=== PATIENT | female | born 1940 | race Caucasian/White ===

== ENCOUNTER 2018-12-26 09:17 | Inpatient (IN) | payer OTHER ==
[2018-12-26] MEDS ORDERED: INSULIN -REGULAR HUMAN 50 UNIT/0.5 ML ML ONE ×4 (10:33→14:32)
[2018-12-26] MEDS ORDERED: NA CHLORIDE 0.9% 1,000 ML ONE (10:34)
--- NOTE | 2018-12-26 11:09 | RAD REPORT ---
EXAM DESCRIPTION: RAD - Chest Single View - 12/26/2018 10:27 am CLINICAL HISTORY: tachypnea Chest pain. COMPARISON: No comparisons FINDINGS: Portable technique limits examination quality. Small pulmonary nodule is identified in the left mid lung. The lungs are otherwise clear. The heart i s mildly enlarged in size appear No displaced fractures.Follow-up CT chest may be considered for furt her assessment of the left lung nodule.
[2018-12-26 11:10] LABS: Absolute Lymphocytes (CBC) 0.6 K/uL (0.7-4.9); Absolute Monocytes 0.8 K/uL (0.1-1.3); Absolute Neutrophil 12.6 K/uL (1.8-8.0); Basophils % 0.2 % (0-1.3); Eosinophils % 0.1 % (0-4.4); Hematocrit 34.4 % (36.0-45.0); Lymphocytes % 4.3 % (15.3-44.8); MPV 7.3 fL (7.6-11.3); Monocytes % 5.9 % (3.3-12.3); RBC Red Blood Cell Count 3.75 M/uL (3.86-4.86)
[2018-12-26 11:43] LABS: Blood Morphology Comment NOT SEEN (NOT SEEN); Platelet Estimate ADEQ; Potassium 4.3 mmol/L (3.5-5.1); Sodium Level 138 mmol/L (136-145); Urine White Blood Cell Casts OK
[2018-12-26 11:55] LABS: ALT/SGPT 41 U/L (12-78); AST/SGOT 40 U/L (15-37); Albumin 3.1 g/dL (3.4-5.0); Alkaline Phosphatase 63 U/L (45-117); BUN Blood Urea Nitrogen 56 mg/dL (7-18); Bicarbonate 21 mmol/L (21-32); Bilirubin Direct 0.2 mg/dL (0-0.2); Bilirubin Total 0.6 mg/dL (0.2-1.0); Lipase 84 U/L (73-393); Protein, Total 7.2 g/dL (6.4-8.2)
[2018-12-26 11:57] LABS: Glucose Level 507 mg/dL (74-106)
[2018-12-26 12:23] LABS: Urine Amorphous Sediment 2+ /HPF (NONE SEEN); Urine Bacteria <20 /HPF (<20); Urine Coarse Granular Casts 0-5 /LPF (NONE SEEN); Urine Culture Reflex Order NOT NEEDED; Urine RBC <5 /HPF (NONE SEEN)
[2018-12-26 13:09] LABS: Urine Blood 1+ (NEG); Urine Glucose 2+ (NEG); Urine Protein 1+ (NEG)
--- NOTE | 2018-12-26 13:39 | EDPHYS ---
Physician Documentation [facility] Name: Alesia Staples Age: 78 yrs Sex: Female : 1940 Arrival Date: 12/26/2018 Time: 09:20 Bed 8 Private MD: None, None ED Physician Trevor Padron HPI: 12/26 09:41 This 78 yrs old Female presents to ER via Unassigned with complaints of Fall rn Injury, Decreased Appetite. 09:42 Reports decreased PO intake, has been having vomiting/diarrhea for a few days, that has rn now improved, no abd pain, fell to ground on Wednesday and unable to get up due to weakness, also hasn't taken her medication for unknown number of days. No fever/chest pain. Reports increased urinary frequency despite not eating/drinking. . Onset: The symptoms/episode began/occurred 1 week(s) ago. Severity of symptoms: At their worst the symptoms were moderate in the emergency department the symptoms are unchanged. The patient has not experienced similar symptoms in the past. The patient has not recently seen a physician. Historical: - Allergies: 09:55 Aspirin; iw - Home Meds: 11:11 glimepiride 2 mg Oral tab 2 tabs once daily for with breakfast [Active]; glimepiride 2 dw mg Oral tab 1 tab once daily for with supper [Active]; metformin 1,000 mg Oral tab 1 tab 2 times per day [Active]; Januvia 100 mg oral tab 1 tab once daily [Active]; oxybutynin chloride 5 mg oral tab 1 tab 2 times per day [Active]; Vitamin B-12 Oral daily [Active]; Hemocyte-Plus 106 mg iron- 1 mg oral cap 1 cap once daily [Active]; gabapentin 300 mg oral cap 1 cap 3 times per day [Active]; atorvastatin 10 mg oral tab 1 tab once daily [Active]; citalopram 20 mg tab 1 tab once daily [Active]; losartan 50 mg oral tab 1 tab once daily [Active]; Calcium Carbonate Oral daily [Active]; Magnesium Oxide Oral daily [Active]; Centrum Silver 0.4-300-250 mg-mcg-mcg oral tab daily [Active]; vitamin E 600 unit oral cap daily [Active]; Vitamin D3 1,000 unit oral cap daily [Active]; Vision oral tab twice a day [Active]; 11:12 glimepiride 2 mg Oral tab 2 tabs once daily [Active]; metformin 1,000 mg Oral tab 1 tab iw 2 times per day [Active]; Januvia 100 mg oral tab 1 tab once daily [Active]; oxybutynin chloride 5 mg Oral tr24 twice a day [Active]; Vitamin B-12 Oral daily [Active]; Hemocyte-Plus 106 mg iron- 1 mg oral cap 1 cap once daily [Active]; gabapentin 300 mg oral cap 1 cap 3 times per day [Active]; atorvastatin 10 mg oral tab 1 tab once daily [Active]; Centrum Silver 400-250 mcg oral chew daily [Active]; citalopram 20 mg tab 1 tab once daily [Active]; Vitamin D3 1,000 unit oral tab daily [Active]; vitamin E 600 unit Oral cap daily [Active]; Calcium Carbonate Oral daily [Active]; losartan 50 mg oral tab 1 tab once daily [Active]; Magnesium Oxide Oral daily [Active]; - PMHx: 11:12 Diabetes - NIDDM; Hyperlipidemia; iw - Immunization history:: Adult Immunizations up to date. - Social history:: Smoking status: Patient/guardian denies using tobacco. - Family history:: not pertinent. - Ebola Screening: : Patient negative for fever greater than or equal to 101.5 degrees Fahrenheit, and additional compatible Ebola Virus Disease symptoms Patient denies exposure to infectious person Patient denies travel to an Ebola-affected area in the 21 days before illness onset No symptoms or risks identified at this time. - Hospitalizations: : No recent hospitalization is reported. ROS: 09:42 Constitutional: Negative for fever, chills, and weight loss, Eyes: Negative for injury, rn pain, redness, and discharge, Neck: Negative for injury, pain, and swelling, Cardiovascular: Negative for chest pain, palpitations, and edema, Respiratory: Negative for cough, wheezing, and pleuritic chest pain, Abdomen/GI: Negative for abdominal pain, nausea, vomiting, diarrhea, and constipation, Back: Negative for injury and pain, : Negative for injury, bleeding, discharge, and swelling, MS/Extremity: Negative for injury and deformity, Skin: Negative for injury, rash, and discoloration, Neuro: Negative for headache, numbness, tingling, and seizure. Exam: 09:42 Constitutional: Overweight woman, no acute distress, smiling, unable to get out of rn wheelchair or stand without assistance. Head/Face: Normocephalic, atraumatic. Eyes: Pupils equal round and reactive to light, extra-ocular motions intact. Lids and lashes normal. Conjunctiva and sclera are non-icteric and not injected. Cornea within normal limits. Periorbital areas with no swelling, redness, or edema. ENT: dry MM Cardiovascular: Regular, tachycardic Respiratory: Mild tachypnea, no retractions Abdomen/GI: soft, non-tender MS/ Extremity: Pulses equal, no cyanosis. Neurovascular intact. mild bilateral lower ext edema with skin changes suggesting chronic edema. Neuro: Awake and alert, GCS 15, oriented to person, place, time, and situation. Cranial nerves II-XII grossly intact. Motor strength 3+/5 in all extremities. Sensory grossly intact. Cerebellar exam normal. 10:02 ECG was reviewed by the Attending Physician. rn Vital Signs: 09:42 BP 175 / 58; Pulse 100; Resp 19; Temp 98.4(TE); Pulse Ox 100% on R/A; Weight 99.79 kg; iw Height 5 ft. 4 in. (162.56 cm); Pain 0/10; 11:02 BP 164 / 77; Pulse 86; Resp 16; Pulse Ox 98% on R/A; Pain 0/10; iw 13:51 BP 119 / 81; Pulse 76; Resp 17; Pulse Ox 99% on R/A; em1 09:42 Body Mass Index 37.76 (99.79 kg, 162.56 cm) iw MDM: 09:26 Patient medically screened. rn 12:33 ED course: No acidosis or elevated AG, will continue with fluids and insulin SC, will rn get ABG for pH, and admit for dehydration/hyperglycemia/weakness. 13:37 Differential Diagnosis dehydration, UTI, enteritis, hyperglycemia. Data reviewed: vital rn signs, nurses notes, lab test result(s), EKG, radiologic studies, plain films, and as a result, I will admit patient. Counseling: I had a detailed discussion with the patient and/or guardian regarding: the historical points, exam findings, and any diagnostic results supporting the discharge/admit diagnosis, lab results, radiology results, the need for further work-up and treatment in the hospital. Response to treatment: the patient's symptoms have mildly improved after treatment, and as a result, I will admit patient. Admission orders: after a detailed discussion of the patient's condition and case, the admit orders are written by me. 12/26 09:40 Order name: CBC with Diff; Complete Time: 11:51 rn 12/26 09:40 Order name: Basic Metabolic Panel; Complete Time: 12:31 rn 12/26 09:40 Order name: Urine Culture 12/26 09:40 Order name: Urine Microscopic Only; Complete Time: 12:31 rn 12/26 09:40 Order name: Blood Culture Adult (2) 12/26 09:40 Order name: Procalcitonin; Complete Time: 12:31 rn 12/26 09:40 Order name: Lactate; Complete Time: 11:27 rn 12/26 09:40 Order name: Hepatic Function; Complete Time: 12:31 rn 12/26 09:40 Order name: Lipase; Complete Time: 12:31 rn 12/26 09:40 Order name: Ketone, Serum; Complete Time: 12:31 rn 12/26 09:45 Order name: CK; Complete Time: 12:31 rn 12/26 11:12 Order name: CBC Smear Scan; Complete Time: 11:51 EDMS 12/26 11:51 Order name: Urine Dipstick--Ancillary (enter results); Complete Time: 13:36 bd 12/26 11:52 Order name: Glucose, Ancillary Testing; Complete Time: 12:31 EDSD 12/26 09:40 Order name: IV Start; Complete Time: 11:59 rn 12/26 09:40 Order name: Urine Dipstick-Ancillary (obtain specimen); Complete Time: 13:24 rn 12/26 09:40 Order name: XRAY Chest (1 view); Complete Time: 11:12 rn 12/26 09:40 Order name: Labs collected and sent; Complete Time: 11:02 rn 12/26 09:41 Order name: EKG; Complete Time: 09:41 rn 12/26 09:41 Order name: EKG - Nurse/Tech; Complete Time: 10:22 rn 12/26 11:52 Order name: Glucose, Ancillary Testing; Complete Time: 12:31 EDMS 12/26 12:32 Order name: ABG rn EC:02 Rate is 89 beats/min. Rhythm is regular. QRS [place] is Normal. RI interval is normal. QRS rn interval is normal. QT interval is normal. No Q waves. T waves are Normal. No ST changes noted. Clinical impression: Normal ECG. Interpreted by me. Reviewed by me. Administered Medications: 10:22 Drug: Insulin Regular Human 5 units {Co-Signature: betzy (Andree Ordonez RN).} Route: iw Sub-Q; Site: right lower abdomen; 10:31 Drug: NS 0.9% 1000 ml Route: IV; Rate: 1000 ml; Site: left hand; iw 13:10 Drug: Insulin Regular Human 5 units {Co-Signature: ss (Ivonne Huerta RN).} Route: iw Sub-Q; Site: left lower abdomen; 14:12 CANCELLED (Duplicate Order): Insulin Regular Human 10 units Sub-Q once rn 14:22 Not Given (Duplicate Order): Insulin Regular Human 5 units Sub-Q once iw 14:22 Drug: Insulin Regular Human 10 units {Co-Signature: betzy (Andree Ordonez RN).} Route: iw Sub-Q; Site: right upper arm; Point of Care Testing: Blood Glucose: 09:48 Blood Glucose: 490 mg/dL; iw 11:52 Blood Glucose: 466 mg/dL; iw 14:58 Blood Glucose: 409 mg/dL; iw Ranges: Critical Glucose Levels:Adult <50 mg/dl or >400 mg/dl <40 mg/dl or >180 mg/dl Disposition: 12/26/18 13:39 Hospitalization ordered by Kerline Pascual for Inpatient Admission. Preliminary diagnosis are Dehydration, Hyperglycemia, unspecified, Weakness. - Bed requested for Telemetry/MedSurg (Inpatient). - Status is Inpatient Admission. iw - Condition is Stable. - Problem is new. - Symptoms have improved. UTI on Admission? No Signatures: Dispatcher [employer] Sarah Ramirez RN RN dw Williams, Irene, RN RN Trevor Padron MD MD rn Heather Baxter RN hb Shelby Smirch RN ss Corrections: (The following items were deleted from the chart) 09:46 09:42 Constitutional: Overweight woman, no acute distress, smiling, unable to get out rn of wheelchair or stand without assistance. rn 14:12 14:12 Insulin Regular Human 10 units Sub-Q once ordered. rn rn 14:29 13:39 Hospitalization Ordered by A Samara FORREST for Inpatient Admission. Preliminary dw diagnosis is Dehydration; Hyperglycemia, unspecified; Weakness. Bed requested for Telemetry/MedSurg (Inpatient). Status is Inpatient Admission. Condition is Stable. Problem is new. Symptoms have improved. UTI on Admission? No. rn 15:19 14:29 12/26/2018 13:39 Hospitalization Ordered by A Samara FORREST for Inpatient Admission. iw Preliminary diagnosis is Dehydration; Hyperglycemia, unspecified; Weakness. Bed requested for Telemetry/MedSurg (Inpatient). Status is Inpatient Admission. Condition is Stable. Problem is new. Symptoms have improved. UTI on Admission? No. dw
--- NOTE | 2018-12-26 13:39 | ER ---
Nurse's Notes [facility] Name: Alesia Staples Age: 78 yrs Sex: Female : 1940 Arrival Date: 12/26/2018 Time: 09:20 Bed 8 Private MD: None, None Diagnosis: Dehydration;Hyperglycemia, unspecified;Weakness Presentation: 12/26 09:48 Presenting complaint: Child states: pt had some episodes of vomiting last week, had iw increasing weakness, no appetite, not drinking fluids because she's afraid to walk to bathroom because she may fall. pt fell Wednesday and was on the floor for some time, this morning pt slid out of bed due to weakness. Transition of care: patient was not received from another setting of care. Onset of symptoms was December 25, 2018. 09:48 Method Of Arrival: Wheelchair iw 09:48 Acuity: LOLI 3 iw 09:48 Risk Assessment: Do you want to hurt yourself or someone else? Patient reports no iw desire to harm self or others. Initial Sepsis Screen: Does the patient meet any 2 criteria? No. Patient's initial sepsis screen is negative. Does the patient have a suspected source of infection? No. Patient's initial sepsis screen is negative. Care prior to arrival: None. Triage Assessment: 09:50 General: Appears in no apparent distress. Behavior is calm, cooperative. iw Historical: - Allergies: 09:55 Aspirin; iw - Home Meds: 11:11 glimepiride 2 mg Oral tab 2 tabs once daily for with breakfast [Active]; glimepiride 2 dw mg Oral tab 1 tab once daily for with supper [Active]; metformin 1,000 mg Oral tab 1 tab 2 times per day [Active]; Januvia 100 mg oral tab 1 tab once daily [Active]; oxybutynin chloride 5 mg oral tab 1 tab 2 times per day [Active]; Vitamin B-12 Oral daily [Active]; Hemocyte-Plus 106 mg iron- 1 mg oral cap 1 cap once daily [Active]; gabapentin 300 mg oral cap 1 cap 3 times per day [Active]; atorvastatin 10 mg oral tab 1 tab once daily [Active]; citalopram 20 mg tab 1 tab once daily [Active]; losartan 50 mg oral tab 1 tab once daily [Active]; Calcium Carbonate Oral daily [Active]; Magnesium Oxide Oral daily [Active]; Centrum Silver 0.4-300-250 mg-mcg-mcg oral tab daily [Active]; vitamin E 600 unit oral cap daily [Active]; Vitamin D3 1,000 unit oral cap daily [Active]; Vision oral tab twice a day [Active]; 11:12 glimepiride 2 mg Oral tab 2 tabs once daily [Active]; metformin 1,000 mg Oral tab 1 tab iw 2 times per day [Active]; Januvia 100 mg oral tab 1 tab once daily [Active]; oxybutynin chloride 5 mg Oral tr24 twice a day [Active]; Vitamin B-12 Oral daily [Active]; Hemocyte-Plus 106 mg iron- 1 mg oral cap 1 cap once daily [Active]; gabapentin 300 mg oral cap 1 cap 3 times per day [Active]; atorvastatin 10 mg oral tab 1 tab once daily [Active]; Centrum Silver 400-250 mcg oral chew daily [Active]; citalopram 20 mg tab 1 tab once daily [Active]; Vitamin D3 1,000 unit oral tab daily [Active]; vitamin E 600 unit Oral cap daily [Active]; Calcium Carbonate Oral daily [Active]; losartan 50 mg oral tab 1 tab once daily [Active]; Magnesium Oxide Oral daily [Active]; - PMHx: 11:12 Diabetes - NIDDM; Hyperlipidemia; iw - Immunization history:: Adult Immunizations up to date. - Social history:: Smoking status: Patient/guardian denies using tobacco. - Family history:: not pertinent. - Ebola Screening: : Patient negative for fever greater than or equal to 101.5 degrees Fahrenheit, and additional compatible Ebola Virus Disease symptoms Patient denies exposure to infectious person Patient denies travel to an Ebola-affected area in the 21 days before illness onset No symptoms or risks identified at this time. - Hospitalizations: : No recent hospitalization is reported. Screenin:54 Abuse screen: Denies threats or abuse. Denies injuries from another. Nutritional iw screening: No deficits noted. Tuberculosis screening: No symptoms or risk factors identified. Fall Risk Fall in past 12 months (25 points). IV access (20 points). Assessment: 10:00 General: Appears in no apparent distress. Behavior is calm, cooperative. Pain: Denies iw pain. Neuro: Level of Consciousness is awake, alert, obeys commands, Oriented to person, place, time, situation, Moves all extremities. Cardiovascular: Patient's skin is warm and dry. Respiratory: Respiratory effort is even, unlabored, Respiratory pattern is regular, symmetrical. Derm: Skin is intact, is fragile, is thin, Skin is dry. Musculoskeletal: Range of motion: intact in all extremities. 11:52 Reassessment: Patient appears in no apparent distress at this time. Patient and/or iw family updated on plan of care and expected duration. Pain level reassessed. Patient is alert, oriented x 3, equal unlabored respirations, skin warm/dry/pink. Patient denies pain at this time. 14:09 Reassessment: Patient appears in no apparent distress at this time. Patient and/or iw family updated on plan of care and expected duration. Pain level reassessed. Patient is alert, oriented x 3, equal unlabored respirations, skin warm/dry/pink. Patient denies pain at this time. Vital Signs: 09:42 BP 175 / 58; Pulse 100; Resp 19; Temp 98.4(TE); Pulse Ox 100% on R/A; Weight 99.79 kg; iw Height 5 ft. 4 in. (162.56 cm); Pain 0/10; 11:02 BP 164 / 77; Pulse 86; Resp 16; Pulse Ox 98% on R/A; Pain 0/10; iw 13:51 BP 119 / 81; Pulse 76; Resp 17; Pulse Ox 99% on R/A; em1 09:42 Body Mass Index 37.76 (99.79 kg, 162.56 cm) iw ED Course: 09:20 Patient arrived in ED. mr 09:20 None, None is Private Physician. mr 09:26 Trevor Padron MD is Attending Physician. rn 09:28 Leonora Lawson, MICHELLE is Primary Nurse. iw 09:48 Arm band placed on. iw 09:49 EKG done, by it service technician. reviewed by Trevor Padron MD. tc 09:53 Triage completed. iw 10:23 Inserted saline lock: 22 gauge in left hand, using aseptic technique. em1 10:25 X-ray completed. Portable x-ray completed in exam room. Patient tolerated procedure sw well. 10:26 XRAY Chest (1 view) In Process Unspecified. EDMS 11:53 Patient has correct armband on for positive identification. Bed in low position. Side iw rails up X2. Adult w/ patient. potline monitor on. Pulse ox on. NIBP on. 13:39 Kerline Pascual MD is Hospitalizing Provider. rn 15:18 No provider procedures requiring assistance completed. Patient admitted, IV remains in iw place. Administered Medications: 10:22 Drug: Insulin Regular Human 5 units {Co-Signature: hb (Andree Ordonez RN).} Route: iw Sub-Q; Site: right lower abdomen; 10:31 Drug: NS 0.9% 1000 ml Route: IV; Rate: 1000 ml; Site: left hand; iw 13:10 Drug: Insulin Regular Human 5 units {Co-Signature: ss (Ivonne Huerta RN).} Route: iw Sub-Q; Site: left lower abdomen; 14:12 CANCELLED (Duplicate Order): Insulin Regular Human 10 units Sub-Q once rn 14:22 Not Given (Duplicate Order): Insulin Regular Human 5 units Sub-Q once iw 14:22 Drug: Insulin Regular Human 10 units {Co-Signature: betzy (Andree Ordonez RN).} Route: iw Sub-Q; Site: right upper arm; Point of Care Testing: Blood Glucose: 09:48 Blood Glucose: 490 mg/dL; iw 11:52 Blood Glucose: 466 mg/dL; iw 14:58 Blood Glucose: 409 mg/dL; iw Ranges: Outcome: 13:39 Decision to Hospitalize by Provider. rn 15:18 Admitted to Tele accompanied by tech, family with patient, via stretcher, Report called iw to Megha 15:18 Condition: good 15:18 Discharge instructions given to patient, family, Instructed on the need for admit, Demonstrated understanding of instructions. 15:19 Patient left the ED. iw Signatures: Dispatcher [employer] Sarah Ramirez RN MICHELLE Lizandro, Leonora Bansal RN RN iw Nieto, Roman, MD MD rn Martinez, Eric em1 Milagro Nixon, 5th grade teacher EKG Yasmeen Nguyen RN, RN ss Corrections: (The following items were deleted from the chart) 11:07 11:02 Pulse 86bpm; Resp 16bpm; Pulse Ox 98% RA; Pain 0/10; iw iw
--- NOTE | 2018-12-26 15:42 | EKG ---
Test Date: 2018-12-26 Test Time: 09:47:48 Senior Internal Auditor: PANCHITO MEASUREMENT RESULTS: Intervals: Rate: 89 OH: 146 QRSD: 82 QT: 368 QTc: 447 [place]: P: 61 OH: 146 QRS: 15 T: 37 INTERPRETIVE STATEMENTS: Normal sinus rhythm Normal ECG Compared to ECG 11/07/1999 12:53:00 No significant changes Electronically Signed On 12-26-18 15:41:37 CDT by Reynaldo Dunn
[2018-12-26] MEDS ORDERED: D50W 25 GM/50 ML SYRINGE IV PRN (16:00)
[2018-12-26] MEDS ORDERED: ONDANSETRON 4 MG/2 ML VIAL IV PRN (16:00)
[2018-12-26] MEDS ORDERED: GLUCAGON 1 MG/VIAL IM PRN (16:00)
[2018-12-26] MEDS: NA CHLORIDE 0.9% 1,000 ML IV SCH (16:00)
[2018-12-26] MEDS: INSULIN -REGULAR HUMAN 50 UNIT/0.5 ML ML SQ SCH ×2 (18:10→21:54)
[2018-12-26] MEDS ORDERED: PNEUMOCOCCAL VACCINE 0.5 ML IMVAC ONE (19:00)
[2018-12-26] MEDS ORDERED: AMLODIPINE 5 MG TAB PO ONE (19:23)
--- NOTE | 2018-12-26 20:27 | RAD REPORT ---
EXAM DESCRIPTION: CT - Head Brain Wo Cont - 12/26/2018 8:20 pm CLINICAL HISTORY: AMS Headache, drowsiness COMPARISON: Chest Single View dated 12/26/2018 TECHNIQUE: All CT scans are performed using dose optimization technique as appropriate and may inclu de automated exposure control or mA/KV adjustment according to patient size. FINDINGS: No intracranial hemorrhage, hydrocephalus or extra-axial fluid collection.No areas of brai n edema or evidence of midline shift. The paranasal sinuses and mastoids are clear. The calvarium is intact. IMPRESSION: No acute intracranial abnormality.
--- NOTE | 2018-12-26 20:32 | RAD REPORT ---
EXAM DESCRIPTION: CT - Thorax Wo Con CLINICAL HISTORY: Chest pain abnormal CXR COMPARISON: Chest Single View dated 12/26/2018 FINDINGS: 8-9 mm nodular structure is seen in the lingula corresponding to the recent chest radiogra ph finding. The structure appears to be a prominent branching point of left pulmonary vessels and is favored to represent a bulbous pulmonary vessel rather than a true pulmonary nodule. As a precaution, a follow-up CT chest would be advised in 3-6 months. Elsewhere, the lungs are emphysematous without concerning nodule or mass seen. No pleural thickening or pleural effusion. No pneumothorax. No axillary, mediastinal or hilar adenopathy. No concerning bony finding. Cholelithiasis. Several small stones are also present in the common bile duct compatible with choledocholithiasis. Mild inflammatory changes are noted about the pancreatic he ad. All CT scans are performed using dose optimization technique as appropriate and may include automated exposure control or mA/KV adjustment according to patient size. IMPRESSION: 8-9 mm area of nodularity in the lingula is favored to represent prominent/bulbous pulmo nary vessel.Advise follow-up CT chest in 3-6 months for surveillance purposes. Cholelithiasis with choledocholithiasis seen. Mild fat stranding surrounding the pancreatic head coul d indicate mild pancreatitis. Consider correlation with amylase/lipase levels.
[2018-12-27 04:29] LABS: Absolute Lymphocytes (CBC) 1.5 K/uL (0.7-4.9); Absolute Monocytes 1.3 K/uL (0.1-1.3); Basophils % 0.2 % (0-1.3); Eosinophils % 1.5 % (0-4.4); Hematocrit 30.9 % (36.0-45.0); Lymphocytes % 12.4 % (15.3-44.8); MPV 6.9 fL (7.6-11.3); Monocytes % 10.5 % (3.3-12.3)
[2018-12-27 04:42] LABS: Potassium 3.6 mmol/L (3.5-5.1); Thyroid Stimulating Hormone 0.491 uIU/mL (0.360-3.740)
[2018-12-27] MEDS: NA CHLORIDE 0.9% 1,000 ML IV SCH ×2 (04:56→08:00)
--- NOTE | 2018-12-27 06:55 | HP ---
Date of Admission: 12/26/2018 Chief Complaint: Fall, weakness, and confusion. History Of Present Illness: This is a 78-year-old female patient who ambulates with a walker, lives in apartment by herself, was in her normal usual state of health until evening. She was in her kitchen and trying to get something out of her refrigerator, lost her balance, and fell down. Th patient says that she was by herself and she was not able to get up. She tried to crawl, but she c ould not crawl much, and she did not have her phone anywhere close by to contact anybody. She ended up staying on the floor after she fell down, and next day which is on Wednesday, the patient's daughter called her couple of times during day time, but she did not answer. So in the evening time, family d ecided to go check on her and found her lying on the floor, so she stayed on the floor for almost 24 hours. With the family's help, she was able to get up, and with assistance, she was able to walk, an d they got her in the chair. Family kept on checking on her everyday after that. Her appetite has b een very poor. Ever since she fell down, she is not eating or drinking as much. Today, when the schuyler vaca's daughter went to check on her, she found her once again lying next to the bed on the floor. Miller sims also saw that the patient was somewhat confused, very weak, so they brought her to the emerge ncy room. After she was evaluated in the ER, she was admitted to the hospital under my service and I saw her in the hospital this evening. The patient's daughter was present with her in the room. The patient has not taken any of her medications in the last 3-4 days as reported by the family. Review of Systems: Constitutional: As mentioned above. MEDICAL CENTER DIRECTOR: As mentioned above. All other systems reviewed and negative. Past Medical History: Significant for iron-deficiency anemia, type 2 diabetes mellitus, hypertension , hyperlipidemia, mild intermittent asthma, and osteoarthritis of multiple sites. Past Surgical History: Arthroscopic knee surgery, hernia repair, hysterectomy, and removal of a cyst from breast. Allergies: TO ASPIRIN, ATENOLOL, DILTIAZEM, ZETIA, FLUTICASONE, FOSINOPRIL, IBUPROFEN, LOSARTAN, SIM VASTATIN, AND VERAPAMIL. Family History: Significant for hypothyroidism, hypertension, and diabetes. Social History: Negative for smoking or alcohol use. Medications: List reviewed. Physical Examination: Vital Signs: Her initial vitals signs were temperature 98.4, pulse 100, respiratory rate 19, blood p ressure 175/58, oxygen saturation 100%, height 5 feet 6 inches, weight 281 pounds. General: Awake, alert, oriented, not in distress. HEENT: Head atraumatic, normocephalic. Conjunctivae nonerythematous. Sclerae white. Mouth, no thr ush or edema noted. Ears/Nose, no mass, lesion, discharge noted. Neck: Supple. No JVD, lymph nodes, bruit, thyromegaly noted. Lungs: Bilateral good equal air entry. Clear to auscultation. No rhonchi. No rales. Heart: Normal heart sounds. No murmur or gallop. Abdomen: Soft, bowel sounds normal. No guarding, rigidity, tenderness, mass, hepatosplenomegaly, di stention, or bruit noted. Extremities: No leg edema. No calf tenderness. Skin: The patient has a rash noted in the skin fold of lower abdominal wall anteriorly and bilateral groin. Lymphatics: No lymph node enlargement in neck, supraclavicular, infraclavicular region. Neuro: No focal neurological deficit. Chest: Unremarkable. External Genitalia: Deferred. Rectal: Deferred. Laboratory Data: White count 14, hemoglobin 11.4, platelets 244. Sodium 138, potassium 4.3, chlorid e 104, bicarb 21, BUN 56, creatinine 1.48, glucose 507. Liver function tests unremarkable except SGO T 40. Serum acetone small. Urinalysis; negative for nitrite and esterase, wbc less than 5. Chest x -ray; small pulmonary nodule present in the left mid lung. Impression: 1.Acute renal failure. 2.Volume depletion. 3.Diabetes mellitus, type 2, uncontrolled. 4.Pulmonary nodule. 5.Hypertension. 6.Hyperlipidemia. 7.Mild intermittent asthma. 8.Osteoarthritis, multiple sites. 9.Iron-deficiency anemia. Plan: We will go ahead and admit the patient to hospital for further evaluation and management of th is problem. The patient is appropriate for inpatient and is expected to spend 2 midnights in hospita l. We will continue IV fluid. Diabetes will be managed with insulin sliding scale per order. Antih ypertensive medication and home medications will be given per order. We will consult Physical Therap y to help ambulate the patient. I will go ahead and order CAT scan of the head without contrast and CAT scan of the chest without contrast for further evaluation. SCD was ordered for DVT prophylaxis. The patient lives at home by herself, and with 2 recent falls in less than 1 week, it is obvious juan c t she cannot be living by herself alone, and I did talk to the patient's daughter about different opt ions including somebody living with her all the time or the patient to move into assisted care facili , and she will communicate with other family members and make decisions. I will see her tomorrow f or followup. For her iron-deficiency anemia, she does not have any signs or symptoms of GI blood los s, and at the time of last office visit, I did communicate with the patient's daughter [place] [facility] [place] [facility] [place] for further GI workup and she was going to schedule her own appointment for thi s, and today, she tells me that she has scheduled appointment with Dr. Vyas, and when I informed her that Dr. Vyas is not a resident care technician, he is another machine fitter like I am, she realized that she was trying to schedule with the wrong specialist. So, I did give her name of local gastroenterologi and she is going to try to schedule appointment. PURA/STEVAN Voice ID: [id number]
[2018-12-27] MEDS: INSULIN -REGULAR HUMAN 50 UNIT/0.5 ML ML SQ SCH ×4 (08:36→21:13)
[2018-12-27] MEDS: CEFTRIAXONE/SWI 1gm 1 GM/10 ML SYR IV SCH ×2 (08:36→21:13)
[2018-12-27] MEDS: SITAGLIPTIN PHOS 100 MG TAB PO SCH (08:37)
[2018-12-27] MEDS: GABAPENTIN 300 MG CAP PO SCH ×3 (08:37→21:14)
[2018-12-27] MEDS: VITAMIN D 1000 UNIT TAB PO SCH (08:37)
[2018-12-27] MEDS: ENOXAPARIN 40 MG/0.4 ML SQ SCH (08:37)
[2018-12-27] MEDS: CITALOPRAM 10 MG TABLET PO SCH (08:37)
[2018-12-27] MEDS: CYANOCOBALAMIN 1,000 MCG TAB PO SCH (08:37)
[2018-12-27] MEDS: LOSARTAN POTASSIUM 50 MG TABLET PO SCH (08:38)
[2018-12-27] MEDS: GLIMEPIRIDE 2 MG TABLET PO SCH ×2 (08:38→17:30)
[2018-12-27] MEDS: NACHLORIDE 0.45% 1,000 ML IV SCH ×2 (08:39→18:39)
[2018-12-27] MEDS ORDERED: AMLODIPINE 5 MG TAB PO SCH (09:00)
[2018-12-27] MEDS: OCUVITE (VIT A,C & E/LUTEIN/MINERAL) TABLET PO SCH ×2 (10:35→21:14)
[2018-12-27] MEDS: MULTIVIT W/ MINERAL TAB PO SCH (10:35)
[2018-12-27] MEDS: OXYBUTYNIN ER 5 MG TAB PO SCH ×2 (10:35→21:14)
[2018-12-27] MEDS: FE SULF/FA/VIT B COMP & C TAB PO SCH (12:34)
[2018-12-27] MEDS: VITAMIN E 400 IU CAP PO SCH (13:29)
[2018-12-27] MEDS: ATORVASTATIN 10 MG TAB PO SCH (21:14)
--- NOTE | 2018-12-27 23:40 | PN ---
Date of Progress Note: 12/27/2018 Subjective: The patient was seen this morning for followup, lying in bed, not in distress. No compl aints reported overnight. Family was at bedside this morning, that is the patient's son and daughter both. Objective: Vital Signs: Reviewed. HEENT: Unremarkable. Lungs: Clear to auscultation. Heart: Sounds normal. Abdomen: Soft. Bowel sounds normal. No guarding, rigidity, tenderness, distention. Extremities: No leg edema. Laboratory Data: White count 12, hemoglobin 10.4, and platelet count of 203. Blood culture was repo rted as gram-positive cocci in pairs and chains. Sodium 144, potassium 3.6, chloride 111, bicarb 26, BUN 41, creatinine 0.98, glucose 217. Impression: 1.Acute renal failure, improving. 2.Volume depletion. 3.Diabetes mellitus. 4.Hypertension. 5.Iron deficiency anemia. Plan: We will continue IV fluid, but change IV fluid per order to half-normal saline. Renal functio n is improving. Physical Therapy to help ambulate the patient. We will repeat blood work tomorrow. Social Service to assist the patient and family with discharge planning and I did discuss with the marsha villegas's son and daughter regarding my recommendation and family was made aware that the patient morenita ld not be living by herself alone as it is not safe for her to do so. So, family will discuss this a nd think about what to do upon discharge as far as her care is concerned. Her CAT scan of the head w as negative for any acute intracranial changes and CAT scan of the chest did not show any pulmonary m ass. Abnormality noted on the chest x-ray was not any kind of mass or growth and it was one of the p ulmonary blood vessels as reported on the CAT scan by radiologist, so no further intervention except we will consider to repeat CAT scan few months down the line. PURA/MODL Voice ID: [id number] Report ID: [id number]
[2018-12-28 04:20] LABS: Absolute Lymphocytes (CBC) 1.5 K/uL (0.7-4.9); Absolute Monocytes 1.3 K/uL (0.1-1.3); Basophils % 0.4 % (0-1.3); Eosinophils % 2.5 % (0-4.4); Hematocrit 30.7 % (36.0-45.0); Monocytes % 10.8 % (3.3-12.3)
[2018-12-28 04:44] LABS: Potassium 3.2 mmol/L (3.5-5.1)
[2018-12-28 04:46] LABS: Magnesium 1.4 mg/dL (1.8-2.4)
[2018-12-28] MEDS: NACHLORIDE 0.45% 1,000 ML IV SCH ×2 (05:30→08:00)
[2018-12-28] MEDS ORDERED: POTASSIUM CL SA 10 MEQ TAB PO ONE ×2 (07:00→19:07)
[2018-12-28] MEDS ORDERED: Magnesium Sulfate 2gm IVPB 2 G/50 ML BAG IV ONE (07:00)
--- NOTE | 2018-12-28 08:26 | RAD REPORT ---
EXAM DESCRIPTION: CT - Abdomen Pelvis Wo Contrast - 12/28/2018 7:40 am CLINICAL HISTORY: Abdominal pain. gallstones COMPARISON: Thorax Wo Con dated 12/26/2018 TECHNIQUE: CT imaging of the abdomen and pelvis was performed without contrast. Solid organ, bowel a nd vascular assessment is limited due to lack of IV and oral contrast. All CT scans are performed using dose optimization technique as appropriate and may include automated exposure control or mA/KV adjustment according to patient size. FINDINGS: The lower lung alfaro are clear. The liver shows no focal mass or biliary dilatation. The spleen, adrenal glands are normal.Multiple s tones are present in the gallbladder. Several small stones are present in the distal common bile duct . Mild inflammatory changes suspected surrounding the pancreas in the region the pancreatic head and duodenal C-loop. Small bilateral renal calculi are present without hydronephrosis. No bowel obstruction, free air, free fluid or abscess. The appendix is normal. Lumbar degenerative changes. IMPRESSION: Cholelithiasis with choledocholithiasis noted. Mild inflammatory changes surrounding the pancreas the duodenal C-loop could be related to pancreatitis. Bilateral nephrolithiasis without hydronephrosis. A limited non-contrast examination was performed as detailed.
[2018-12-28] MEDS: INSULIN -REGULAR HUMAN 50 UNIT/0.5 ML ML SQ SCH ×4 (09:14→20:10)
[2018-12-28] MEDS: VITAMIN D 1000 UNIT TAB PO SCH (09:15)
[2018-12-28] MEDS: CEFTRIAXONE/SWI 1gm 1 GM/10 ML SYR IV SCH ×2 (09:15→20:01)
[2018-12-28] MEDS: ENOXAPARIN 40 MG/0.4 ML SQ SCH (09:15)
[2018-12-28] MEDS: MULTIVIT W/ MINERAL TAB PO SCH (09:15)
[2018-12-28] MEDS: SITAGLIPTIN PHOS 100 MG TAB PO SCH (09:16)
[2018-12-28] MEDS: CITALOPRAM 10 MG TABLET PO SCH (09:16)
[2018-12-28] MEDS: GLIMEPIRIDE 2 MG TABLET PO SCH ×2 (09:16→16:17)
[2018-12-28] MEDS: CYANOCOBALAMIN 1,000 MCG TAB PO SCH (09:16)
[2018-12-28] MEDS: GABAPENTIN 300 MG CAP PO SCH ×3 (09:16→20:01)
[2018-12-28] MEDS: OCUVITE (VIT A,C & E/LUTEIN/MINERAL) TABLET PO SCH ×2 (09:16→20:02)
[2018-12-28] MEDS: OXYBUTYNIN ER 5 MG TAB PO SCH ×2 (09:17→20:02)
[2018-12-28] MEDS: LOSARTAN POTASSIUM 50 MG TABLET PO SCH (09:17)
[2018-12-28] MEDS: VITAMIN E 400 IU CAP PO SCH (09:17)
[2018-12-28] MEDS: FE SULF/FA/VIT B COMP & C TAB PO SCH (12:03)
[2018-12-28 13:26] LABS: Magnesium 1.8 mg/dL (1.8-2.4); Potassium 3.7 mmol/L (3.5-5.1)
[2018-12-28] MEDS ORDERED: MAGNESIUM SULFATE 1 gm IVPB 1 GM/100 ML BAG IV ONE (19:07)
[2018-12-28] MEDS: ATORVASTATIN 10 MG TAB PO SCH (20:02)
--- NOTE | 2018-12-29 00:10 | PN ---
Date of Progress Note: 12/28/2018 Subjective: Patient was seen this morning for followup. No new complaints, problems reported by pat nola, lying in bed, not in distress. Yesterday she did ambulate with physical therapy. No new compl aints, problems reported overnight. Objective: Vital Signs: Reviewed. HEENT: Examination unremarkable. Lungs: Clear to auscultation. Heart: Sounds normal. Abdomen: Soft, bowel sounds normal. No guarding, rigidity, tenderness, distention. Extremities: No leg edema. Laboratory Data: White count 12.1, hemoglobin 10.5, platelets 198. Sodium 140, potassium 3.2, chlor piedad 108, bicarb 26, BUN 26, creatinine 0.89, glucose 196, magnesium 1.4. Impression: 1.Acute renal failure, improved. 2.Volume depletion, improved. 3.Hypokalemia. 4.Hypomagnesemia. 5.Diabetes mellitus. 6.Hypertension. 7.Anemia, iron deficiency. Plan: We will go ahead and continue current antihypertensive medication and diabetes management. Co ntinue IV fluid, but change the IV fluid per order. We will repeat blood work tomorrow, replace elec trolytes per protocol. We will go ahead and get a CAT scan of abdomen without contrast today. Detai ls and plan of treatment discussed with the patient and the patient's daughter, who was at bedside. Daughter was encouraged to talk to Social Service today regarding discharge planning. PURA/STEVAN Voice ID: [id number] Report ID: [id number]
[2018-12-29] MEDS: NACHLORIDE 0.45% 1,000 ML IV SCH (03:22)
[2018-12-29 06:38] LABS: Absolute Lymphocytes (CBC) 1.2 K/uL (0.7-4.9); Absolute Monocytes 1.2 K/uL (0.1-1.3); Absolute Neutrophil 8.2 K/uL (1.8-8.0); Basophils % 0.3 % (0-1.3); Eosinophils % 2.7 % (0-4.4); Hematocrit 32.5 % (36.0-45.0); Lymphocytes % 10.8 % (15.3-44.8); MPV 6.8 fL (7.6-11.3); RBC Red Blood Cell Count 3.56 M/uL (3.86-4.86)
[2018-12-29 07:06] LABS: Magnesium 1.8 mg/dL (1.8-2.4); Potassium 3.7 mmol/L (3.5-5.1)
[2018-12-29] MEDS ORDERED: POTASSIUM CL SA 10 MEQ TAB PO ONE (07:33)
[2018-12-29] MEDS ORDERED: MAGNESIUM SULFATE 1 gm IVPB 1 GM/100 ML BAG IV ONE (07:34)
[2018-12-29] MEDS: INSULIN -REGULAR HUMAN 50 UNIT/0.5 ML ML SQ SCH ×3 (08:40→16:50)
[2018-12-29] MEDS: SITAGLIPTIN PHOS 100 MG TAB PO SCH (08:43)
[2018-12-29] MEDS: ENOXAPARIN 40 MG/0.4 ML SQ SCH (08:44)
[2018-12-29] MEDS: MULTIVIT W/ MINERAL TAB PO SCH (08:45)
[2018-12-29] MEDS: VITAMIN D 1000 UNIT TAB PO SCH (08:45)
[2018-12-29] MEDS: OCUVITE (VIT A,C & E/LUTEIN/MINERAL) TABLET PO SCH (08:45)
[2018-12-29] MEDS: GLIMEPIRIDE 2 MG TABLET PO SCH ×2 (08:45→16:50)
[2018-12-29] MEDS: CYANOCOBALAMIN 1,000 MCG TAB PO SCH (08:46)
[2018-12-29] MEDS: CITALOPRAM 10 MG TABLET PO SCH (08:47)
[2018-12-29] MEDS: OXYBUTYNIN ER 5 MG TAB PO SCH (08:48)
[2018-12-29] MEDS: VITAMIN E 400 IU CAP PO SCH (08:49)
[2018-12-29] MEDS: GABAPENTIN 300 MG CAP PO SCH ×2 (08:51→14:18)
[2018-12-29] MEDS: LOSARTAN POTASSIUM 50 MG TABLET PO SCH (08:52)
[2018-12-29] MEDS ORDERED: CEFTRIAXONE/SWI 1gm 1 GM/10 ML SYR IV SCH (09:00)
[2018-12-29 09:42] LABS: Blood Morphology Comment NOT SEEN (NOT SEEN); Platelet Estimate ADEQ
[2018-12-29] MEDS: FE SULF/FA/VIT B COMP & C TAB PO SCH (12:38)
--- NOTE | 2018-12-30 18:46 | DS ---
Date of Discharge: 12/29/2018 Physical Examination: HEENT: Examination unremarkable. Lungs: Clear to auscultation. Heart: Sounds normal. Abdomen: Soft. Bowel sounds normal. No guarding, rigidity, tenderness, or distention. Extremities: No leg edema. Laboratory Data: Initial white count 14, hemoglobin 11.4, platelets 244. Last white count today 10. 9, hemoglobin 11, platelets 199. Her chest x-ray when she first came in showed small pulmonary nodule. CAT scan of the chest without contrast done at the time of admission showed no evidence of pulmonary mass but reported that it was a pulmonary vessel that actually gave the false appearance of the pulmonary mass. CAT scan of the br ain was negative for any acute intracranial changes. CAT scan of abdomen without contrast done yeste rday showing evidence of gallstones and choledocholithiasis, mild inflammatory changes surrounding th e pancreas noted. Bilateral small kidney stone without any hydronephrosis. Lipase today was 109, sodium 139, potassium 3.7, chloride 108, bicarb 24, BUN 18, creatinine 0.85, gl ucose 226. Hospital Course: This is a 78-year-old pleasant female patient who fell down at home and had confusi on problem, was brought into the emergency room. After she was evaluated, she was admitted to the [facility] under my service. Please see dictated H and P for more information. The patient had 2 falls at home within 2-3 days. After the second fall, she was brought in to the hospital. After the first fall, she ended up staying on her floor for almost 24 hours before family could find her. After she was evaluated in the ER, she was admitted to the hospital with acute renal failure, volume depletion . She was started on IV fluid. White count was elevated but there was no definite source or evidenc e of any infection anywhere. Her altered mental status problem resolved. Volume depletion problem r esolved with IV fluid hydration. Physical Therapy was consulted and the patient started to ambulate with physical therapy. She started to tolerate diet very well. Her blood culture initially reported as growing gram-positive cocci in chain and pair and empiric antibiotic ceftriaxone was started. To day, we got the final report on the blood culture that it was a skin contaminant, but we decided to c ontinue ceftriaxone because of choledocholithiasis problem that she has now. The patient needs ERCP with possible stent placement and then a cholecystectomy procedure and unfortunately, we do not have any casting technician on-call who is available to do such procedure, so I did communicate with the p atnola and the patient's daughter this morning and recommended that the patient should go to [place] to [facility] for further evaluation and management of this problem and they were agreeable to do so. I did talk to hospitalist as well as casting technician at [facility], and deta ils were discussed after patient was accepted and arrangements completed. This evening, the patient will be transferred via ground ambulance. The patient was provided with DVT prophylaxis during this hospitalization using Lovenox. I did communicate with family regarding the patient's living arrangem ents. She lives alone in her apartment, and I recommended that the patient should not be living samantha e by herself, and different options including 24-hour care in her apartment or moving into assisted c are facility, different options discussed with family. At this point, the patient and family have de cided to go back home upon discharge from the hospital. Final Diagnoses: 1.Acute renal failure. 2.Volume depletion. 3.Gallstone. 4.Choledocholithiasis. 5.Kidney stone. 6.Diabetes mellitus, type 2, uncontrolled. 7.Hypertension. 8.Hyperlipidemia. 9.Mild intermittent asthma. 10.Osteoarthritis, multiple sites. 11.Iron-deficiency anemia. PURA/MODL Voice ID: [id number] Report ID: [id number]
== END 2018-12-29 20:45 | disposition short-term general hospital (02) | DRG 684 ==
LOC: ER 09:17 → ERHOLD 13:40 → 4TH 15:01
PROVIDERS: ADMIT Internal Medicine; ATTEND Internal Medicine
DX: N17.9 Acute kidney failure, unspecified (principal); E86.9 Volume depletion, unspecified; E11.65 Type 2 diabetes mellitus with hyperglycemia; K80.50 Calculus of bile duct without cholangitis or cholecystitis without obstruction; R91.1 Solitary pulmonary nodule; I10 Essential (primary) hypertension; E78.5 Hyperlipidemia, unspecified; J45.20 Mild intermittent asthma, uncomplicated; D50.9 Iron deficiency anemia, unspecified; E87.6 Hypokalemia; E83.42 Hypomagnesemia; N20.0 Calculus of kidney; M15.9 Polyosteoarthritis, unspecified; Z23 Encounter for immunization; Z91.81 History of falling
CPT/HCPCS: 36415; 70450; 71045; 71250; 74176; 80048; 80076; 81003; 81015; 82010; 82550; 82962; 83036; 83605; 83690; 83735; 84132; 84145; 84443; 85025; 87040; 87077; 87086; 87088; 87186; 87205; 93005; 96365; 96367; 96372; 97116; 97163; 97530; 99285; J0696; J1650; J3475; J7030